=== PATIENT | female | born 1980 | race Caucasian/White ===

== ENCOUNTER 2019-02-20 10:22 | Observation (INO) | payer OTHER, SELFPAY ==
[2019-02-20] VITALS (8 sets, daily range): BP systolic 98–122; BP diastolic 48–71; PULSE 57–79; RESP 16–18; TEMP 36.6–37.4; O2SAT 98–100; BMI 21.7
--- NOTE | 2019-02-20 | PATH_ITS ---
[facility] Accession Number: [id number] . 01 Material submitted: . PART A: fallopian tube - RIGHT FALLOPIAN TUBE PART B: peritoneum - PERITONEAL BIOPSY . 01 Clinical history: . ECTOPIC B. POSSIBLE ENDOMETRIOSIS . 02 Diagnosis: A. Right Fallopian Tube, Right Salpingectomy: Fallopian tube with acute endosalpingitis, hematosalpinx, and intraluminal chorionic villi, consistent with ectopic . Endosalpingiosis focally present. No evidence of intraepithelial neoplasia or malignancy. . B. Peritoneal, Biopsy: Endosalpingiosis. No evidence of endometrial stroma, hemorrhage, or malignancy. MRV/02/26/2019 . 02 Electronically signed: . Lachelle Willoughby MD, Pathologist NPI- [id number] . 01 Gross description: . (A) Received in formalin, labeled right fallopian tube, is a nonfimbriated segment of fallopian tube (length-8.2 cm, diameter-up to 1.8 cm) with de la torre-purple, smooth shiny serosa. The lumen is dilated and contains red-brown solid soft material. No tissue is identified. Serially sectioned and entirely submitted in cassettes A1-A12. (B) Received in formalin, labeled peritoneal biopsy, possible endometriosis, is a fragment of de la torre-white tissue (0.5 x 0.3 x 0.2 cm). Submitted intact in cassette B1. ([id number]) /MRV . 02 Microscopic: . A) Immunohistochemical stains were performed to characterize glands of interest in block A2. The control stains show appropriate reactivity. Ki-67 stain shows no increased activity compared to the internal control. A p53 stain also shows patchy reactivity similar to the internal control. These findings are compatible with benign/reactive epithelium. . * This test was developed and its performance characteristics determined by [employer]. It has not been cleared or approved by the U.S. Food and Drug Administration. The FDA has determined that such clearance or approval is not necessary. This test is used for clinical purposes. It should not be regarded as investigational or for research. . B) Immunohistochemical stains were performed to characterize the cells of interest. All control stains showed appropriate reactivity. . RESULTS: PAX-8: Positive in the glands of interest. D2-40: Negative in the glands of interest. WT1: No tissue on slide following processing. . INTERPRETATION: The immunophenotype is compatible with endosalpingiosis. The absence of D2-40 mitigates against an interpretation of mesothelial inclusions. . * This test was developed and its performance characteristics determined by [employer]. It has not been cleared or approved by the U.S. Food and Drug Administration. The FDA has determined that such clearance or approval is not necessary. This test is used for clinical purposes. It should not be regarded as investigational or for research. . 02 Pathologist provided ICD-10: O00.90 . 02 CPT . 503543, 877546, G38424, P75653 Performed at: 01 [facility] [address] [place] [address], [place], [place] [id number] MD Samson Ahsley MD Phone: [phone] Performed at: 02 [facility] [address] [place] [id number] MD Lachelle Willoughby MD Phone: [phone]
--- NOTE | 2019-02-20 10:39 | DI.US.S_ITS ---
PROCEDURE: US OB <= 14 WEEKS FETUS INDICATIONS: RT OWER ABD PAIN, + PREG, PROBABLE ECTOPIC OUTSIDE/PRIOR DATING DATA: Last menstrual period (LMP): Not applicable. LMP-based estimated date of delivery (LEONARDO): Not applicable. First dating scan (date and location): Not applicable. Estimated date of delivery (LEONARDO) from first dating scan: Not applicable. TECHNIQUE: Real-time scanning was performed of the fetus and maternal pelvic organs, with image documentation. Endovaginal scanning was also performed to better visualize the fetus and maternal ovaries. COMPARISON: None. FINDINGS: Embryo: No intrauterine identified. Endometrium measures 12 mm in thickness. Measurement variability in dating: +/- 4 weeks by LMP, +/- 7 days by mean sac diameter (use before 6 weeks gestation if crown-rump length not able to be measured), +/- 5 days by crown-rump length (up to 8 weeks 6 days gestation), +/- 7 days by crown-rump length (up to 13 weeks 6 days gestation). Maternal organs: The right ovary measures 3.3 x 2.1 x 1 cm and is grossly unremarkable. Left ovary measures 2.9 x 1.1 x 2.0 cm and is unremarkable. Within the right adnexal region, there is a heterogeneous mass measuring 3.7 x 1.8 x 2.3 cm, compatible with patient's given clinical history of ectopic . Limited images through the kidneys demonstrate no hydronephrosis. IMPRESSION: No intrauterine . Right adnexal mass in keeping with reported ectopic . Findings were personally telephoned and discussed with Dr. Monterroso in the emergency department at 1256 hours on 02/20/19. Dictated by: Roman Conway M.D. on 02/20/2019 at 12:51 Approved by: Roman Conway M.D. on 02/20/2019 at 12:57
[2019-02-20 11:06] LABS: Add Manual Diff / Slide Review NO; Basophils Absolute Auto 0 /uL (0-100); Basophils Percent Auto 0.3 % (0-2); Eosinophils Absolute Auto 600 /uL (0-450); Eosinophils Percent Auto 6.6 % (2-4); Hematocrit 38.4 % (36-46); Hemoglobin 13.2 g/dL (12.0-16.0); Lymphocytes Absolute Auto 2700 /uL (1100-4500); Lymphocytes Percent Auto 29.2 % (25-40); Mean Corpuscular HGB Conc 34.4 % (30-36); Mean Corpuscular Hemoglobin 31.7 PG (26-34); Monocytes Absolute Auto 500 /uL (0-900); Monocytes Percent Auto 5.7 % (3-14); Neutrophils Absolute Auto 5400 /uL (1500-7000); Neutrophils Percent Auto 58.2 % (50-75); Platelet Count 206 X10^3/uL (150-400); Red Blood Cell Count 4.18 X10^6/uL (4.0-5.2); Red Cell Distribution Width 12.2 % (11.6-14.8); White Blood Cell Count 9.3 X10^3/uL (4.5-11.0)
[2019-02-20 11:18] LABS: Alanine Aminotransferase 11 IU/L (9-52); Albumin 4.6 g/dL (3.5-5.0); Albumin Globulin Ratio 1.5 (1.0-2.8); Alkaline Phosphatase 63 U/L (38-126); Aspartate Aminotransferase 23 IU/L (14-36); BUN Creatinine Ratio 18.3 (6-22); Bilirubin Total 0.8 mg/dL (0.2-1.3); Blood Urea Nitrogen 11 mg/dL (7-17); Calcium 9.4 mg/dL (8.4-10.2); Carbon Dioxide 26 mmol/L (22-32); Chloride 105 mmol/L (98-107); Estimated Glomerular Filt Rate > 60.0 mL/min (>60); Globulin 3.1 g/dL (1.7-4.1); Glucose 102 mg/dL (70-100); HEMOLYSIS < 15 (0-50); Potassium 3.9 mmol/L (3.4-5.1); Sodium 139 mmol/L (137-145); Total Protein 7.7 g/dL (6.3-8.2)
[2019-02-20 11:35] LABS: HCG Quantitative /Beta subunit 1533.3 mIU/mL
--- NOTE | 2019-02-20 11:39 | ED.FEMALEGU ---
HPI - Female Genitourinary General Chief complaint: OB/Uterine Contractions Stated complaint: etopic Time Seen by Provider: 02/20/19 10:40 Source: patient Mode of arrival: ambulatory Limitations: no limitations History of Present Illness HPI Narrative: Patient is a 38-year-old with history of 3 ectopics on the right being followed at fertility Clinic in [place] presenting with right lower quadrant pain. She said she was diagnosed with an ectopic 2 days ago at the fertility clinic. She was scheduled to have a right tubal removal however due to insurance reasons they were unable to do the procedure today. She is not wanting methotrexate, she states she has taken it in the past it takes her 2 years before trying again. She is wanting to have children. She is having some mild vaginal bleeding she has only minimal pain no nausea or vomiting. Related Data Home Medications Medication Instructions Recorded Confirmed albuterol sulfate 2 puff INHALATION Q4-6M PRN 02/20/19 02/20/19 levothyroxine 25 mcg PO DAILY 02/20/19 02/20/19 montelukast 10 mg PO DAILY 02/20/19 02/20/19 progesterone micronized 200 mg PO DAILY 02/20/19 02/20/19 valacyclovir 500 mg PO DAILY 02/20/19 02/20/19 Previous Rx's Medication Instructions Recorded oxycodone 10 mg PO Q4-6H PRN #30 tab 02/20/19 tramadol 50 mg PO TID PRN #30 tab 02/20/19 Allergies Allergy/AdvReac Type Severity Reaction Status Date / Time No Known Drug Allergies Allergy Verified 02/20/19 10:38 Review of Systems Review of Systems GENERAL: Denies chills, fatigue, malaise, fever, sweats, travel HEENT: Denies sinus pain, ear pain, sore throat, difficulty swallowing, neck pain RESPIRATORY: Denies dyspnea, cough, wheezing, hemoptysis, sputum. CARDIOVASCULAR: Denies chest pain, palpitations, orthopnea, edema GASTROINTESTINAL: Denies nausea, vomiting, abdominal pain, diarrhea, constipation, melena. : See HPI MUSCULOSKELETAL: Denies weakness, joint pain, or bony pain SKIN: No rash, no erythema, no pruritus NEUROLOGIC: Denies weakness, dizziness, headache, numbness, change in speech, confusion PSYCHIATRIC: No concerning psychosocial issues. 12 point review of systems is negative except for those stated above and HPI [facility] Medical History Ectopic (Acute) Asthma (Chronic) Hypothyroid (Chronic) Miscarriage (Inactive) Surgical History S/P breast augmentation (Chronic) Social History household members: spouse Smoking Status: Former smoker alcohol intake: current Social History household members: spouse Smoking Status: Former smoker alcohol intake: current Exam Initial Vital Signs Initial Vital Signs: Vital Signs Temperature 98.5 F 02/20/19 10:25 Pulse Rate 72 02/20/19 10:25 Respiratory Rate 18 02/20/19 10:25 Blood Pressure 116/70 02/20/19 10:25 Pulse Oximetry 99 02/20/19 10:25 GENERAL: Well-appearing, well-nourished and in no acute distress. HEENT: Head atraumatic,EOMI, pupils reactive CARDIOVASCULAR: Regular rate and rhythm without murmurs, rubs or gallops. RESPIRATORY: Breath sounds equal bilaterally, no wheezes rales or rhonchi. ABDOMEN: Soft, minimal right lower quadrant tenderness : No CVA tenderness EXTREMITIES: Normal range of motion, no clubbing or edema. Neurovascularly intact NEUROLOGICAL: Alert and oriented x4.Normal gait and speech. Cranial nerves II through XII grossly intact. SKIN: Warm, dry, no laceration, no petechiae, no rashes or lesions. Course Orders Ordered: ED Orders 02/20/19 10:39 US OB <= 14 weeks fetus Stat 02/20/19 10:55 ABO RH Type Stat Complete Blood Count AUTO DIFF Stat Comprehensive Metabolic Panel Stat HCG Quantitative Stat Lactated Ringer's (Lactated Ringers) 1,000 mls @ 100 mls/hr IV CONT LISA Last Admin: 02/20/19 14:35 Dose: 100 mls/hr Vital Signs - 8 hr 02/20/19 10:25 02/20/19 13:48 02/20/19 14:13 Temperature 98.5 F Pulse Rate 72 75 72 Respiratory Rate 18 17 16 Blood Pressure 116/70 111/63 Blood Pressure [Left Arm] 109/71 Pulse Oximetry 99 98 100 02/20/19 14:25 02/20/19 16:15 Temperature 97.8 F 99.4 F Pulse Rate 57 L 64 Respiratory Rate 16 18 Blood Pressure 107/55 L 99/61 Blood Pressure [Left Arm] Pulse Oximetry 100 98 MDM - Female Genitourinary Lab Data Attestation: I reviewed the patient's lab results. Result diagrams: 02/20/19 10:55 02/20/19 10:55 Lab Results 02/20/19 02/20/19 02/20/19 Range/Units 10:55 10:55 10:55 WBC 9.3 (4.5-11.0) X10^3/uL RBC 4.18 (4.0-5.2) X10^6/uL Hgb 13.2 (12.0-16.0) g/dL Hct 38.4 (36-46) % MCV 92.0 (80-100) fL MCH 31.7 (26-34) PG MCHC 34.4 (30-36) % RDW 12.2 (11.6-14.8) % Plt Count 206 (150-400) X10^3/uL Neut % (Auto) 58.2 (50-75) % Lymph % (Auto) 29.2 (25-40) % [place] % (Auto) 5.7 (3-14) % Eos % (Auto) 6.6 H (2-4) % Baso % (Auto) 0.3 (0-2) % Neut # (Auto) 5400 (1880-2617) /uL Lymph # (Auto) 2700 (6570-9402) /uL [place] # (Auto) 500 (0-900) /uL Eos # (Auto) 600 H (0-450) /uL Baso # (Auto) 0 (0-100) /uL Sodium 139 (137-145) mmol/L Potassium 3.9 (3.4-5.1) mmol/L Chloride 105 (98-107) mmol/L Carbon Dioxide 26 (22-32) mmol/L BUN 11 (7-17) mg/dL Creatinine 0.60 (0.52-1.04) mg/dL Estimated GFR > 60.0 (>60) mL/min BUN/Creatinine Ratio 18.3 (6-22) Glucose 102 H (70-100) mg/dL Calcium 9.4 (8.4-10.2) mg/dL Total Bilirubin 0.8 (0.2-1.3) mg/dL AST 23 (14-36) IU/L ALT 11 (9-52) IU/L Alkaline Phosphatase 63 (38-126) U/L Total Protein 7.7 (6.3-8.2) g/dL Albumin 4.6 (3.5-5.0) g/dL Globulin 3.1 (1.7-4.1) g/dL Albumin/Globulin Ratio 1.5 (1.0-2.8) HCG, Quant 1533.3 mIU/mL Blood Type O Positive Point of Care Testing Test Results Positive Urine Dip Bedside Urine Glucose Negative Bedside Urine Bilirubin - Negative Bedside Urine Ketone - Negative Urine Specific [place] 1.015 Bedside Urine Occult Blood - Negative Bedside Urine pH 6 Bedside Urine Protein +/- 15 Bedside Urine Urobilinogen - Negative Bedside Urine Nitrite - Negative Bedside Urine Leukocytes - Negative Esterase Imaging Data US - abdomen: Radiologist's impression: PROCEDURE: US OB <= 14 WEEKS FETUS INDICATIONS: RT OWER ABD PAIN, + PREG, PROBABLE ECTOPIC OUTSIDE/PRIOR DATING DATA: Last menstrual period (LMP): Not applicable. LMP-based estimated date of delivery (LEONARDO): Not applicable. First dating scan (date and location): Not applicable. Estimated date of delivery (LEONARDO) from first dating scan: Not applicable. TECHNIQUE: Real-time scanning was performed of the fetus and maternal pelvic organs, with image documentation. Endovaginal scanning was also performed to better visualize the fetus and maternal ovaries. COMPARISON: None. FINDINGS: Embryo: No intrauterine identified. Endometrium measures 12 mm in thickness. Measurement variability in dating: +/- 4 weeks by LMP, +/- 7 days by mean sac diameter (use before 6 weeks gestation if crown-rump length not able to be measured), +/- 5 days by crown-rump length (up to 8 weeks 6 days gestation), +/- 7 days by crown-rump length (up to 13 weeks 6 days gestation). Maternal organs: The right ovary measures 3.3 x 2.1 x 1 cm and is grossly unremarkable. Left ovary measures 2.9 x 1.1 x 2.0 cm and is unremarkable. Within the right adnexal region, there is a heterogeneous mass measuring 3.7 x 1.8 x 2.3 cm, compatible with patient's given clinical history of ectopic . Limited images through the kidneys demonstrate no hydronephrosis. IMPRESSION: No intrauterine . Right adnexal mass in keeping with reported ectopic . Findings were personally telephoned and discussed with Dr. Monterroso in the emergency department at 1256 hours on 02/20/19. Dictated by: Roman Conway M.D. on 02/20/2019 at 12:5 MDM Narrative Medical decision making narrative: Dr. Julian in the ED to see and evaluate patient. Will go to OR, 7:00 p.m. [facility]. Discharge Plan Departure Patient Disposition: Admitted as Observation Clinical Impression: Ectopic Qualifiers: Location of ectopic : tubal Intrauterine status: without intrauterine Laterality: right Qualified Code(s): O00.101 - Right tubal without intrauterine Discharge Date/Time: 02/20/19 14:16 Interventions: ED Discharge Assessment Last Done: 02/20/19 14:13 Admit Date/Time: 02/20/19 14:14 Admit Provider: Brittany Julian
--- NOTE | 2019-02-20 14:22 | PC.NURSE ---
ADMISSION NOTE - pt arrived via wc to room, ambulatory, states mild cramping discomfort, declines medication, provided peripads and cleaning cloths provided, oriented to room.
[2019-02-20] MEDS: LACTATED RINGERS 1,000 ML 100 ML IV (14:35)
--- NOTE | 2019-02-20 14:36 | P.HPOB_ITS ---
History of Present Illness Reason for admission: ectopic (Right tube) Narrative: Lizbeth Saleh is a 38 year old female 5 para 0 with 2 early miscarriages and 2 prior right sided ectopic pregnancies treated with methotrexate. Patient currently has a presumed right ectopic tubal with an HCG level of 1500. Patient is requesting salpingectomy rather than repeat methotrexate. [facility] Medical History (Updated 02/20/19 @ 14:39 by Brittany Julian MD) Ectopic (Acute) Asthma (Chronic) Hypothyroid (Chronic) Miscarriage (Inactive) Surgical History (Updated 02/20/19 @ 14:39 by Brittany Julian MD) S/P breast augmentation (Chronic) Social History Smoking Status: Never smoker Social History Smoking Status: Never smoker Meds Home Medications Medication Instructions Recorded Confirmed Type albuterol sulfate 2 puff INHALATION Q4-6M PRN 02/20/19 02/20/19 History levothyroxine 25 mcg PO DAILY 02/20/19 02/20/19 History montelukast 10 mg PO DAILY 02/20/19 02/20/19 History oxycodone 10 mg PO Q4-6H PRN #30 tab 02/20/19 02/20/19 Rx progesterone micronized 200 mg PO DAILY 02/20/19 02/20/19 History valacyclovir 500 mg PO DAILY 02/20/19 02/20/19 History Allergies Allergy/AdvReac Type Severity Reaction Status Date / Time No Known Drug Allergies Allergy Verified 02/20/19 10:38 Review of Systems Review of Systems Patient with mild right lower quadrant pain and cramping. No significant bleeding. All systems reviewed & are unremarkable except as noted in HPI and below Exam Vital Signs (past 8 hours): - 02/20/19 10:25 02/20/19 13:48 02/20/19 14:13 Temperature 98.5 F Pulse Rate 72 75 72 Respiratory Rate 18 17 16 Blood Pressure 116/70 111/63 Blood Pressure [Left Arm] 109/71 Pulse Oximetry 99 98 100 Oxygen Delivery Method Room Air Narrative Exam Narrative: HEENT exam within normal limits. Lungs are clear to auscultat ion and percussion. No thyromegaly. Heart is regular rate and rhythm no S3-S4 or murmurs. Abdomen is soft with no rebound but mild tenderness in the lower abdomen. Pelvic exam was not performed. Extremities with no edema and nontender. Objective Imaging US - abdomen: My impression: Patient's infertility physician documented the right ectopic . He was unable to perform a scheduled outpatient laparoscopic removal of ectopic so advised her to present to the emergency room Labs Result Diagrams: 02/20/19 10:55 02/20/19 10:55 Labs: Laboratory Results - last 24 hr 02/20/19 02/20/19 02/20/19 10:55 10:55 10:55 WBC 9.3 RBC 4.18 Hgb 13.2 Hct 38.4 MCV 92.0 MCH 31.7 MCHC 34.4 RDW 12.2 Plt Count 206 Neut % (Auto) 58.2 Lymph % (Auto) 29.2 [place] % (Auto) 5.7 Eos % (Auto) 6.6 H Baso % (Auto) 0.3 Neut # (Auto) 5400 Lymph # (Auto) 2700 [place] # (Auto) 500 Eos # (Auto) 600 H Baso # (Auto) 0 Sodium 139 Potassium 3.9 Chloride 105 Carbon Dioxide 26 BUN 11 Creatinine 0.60 Estimated GFR > 60.0 BUN/Creatinine Ratio 18.3 Glucose 102 H Calcium 9.4 Total Bilirubin 0.8 AST 23 ALT 11 Alkaline Phosphatase 63 Total Protein 7.7 Albumin 4.6 Globulin 3.1 Albumin/Globulin Ratio 1.5 HCG, Quant 1533.3 Blood Type O Positive Assessment & Plan (1) Ectopic : Qualifiers: Intrauterine status: without intrauterine Laterality: right Location of ectopic : tubal Qualified Code(s): O00.101 - Right tubal without intrauterine Current visit: Yes Status: Acute Assessment & Plan narrative: Patient with recurrent right ectopic requesting laparoscopic removal of her right tube. Consent form was reviewed with the patient. Risk of damage to bowel, bladder, ureter discussed. Possibility of opening the abdomen discussed. Small risk of infection discussed. Patient requests dye being placed through the uterus to see if the left fallopian tube is patent. Consent form was signed and questions answered. Time Spent With Patient Time with patient: 15-24 minutes
--- NOTE | 2019-02-20 17:20 | PC.NURSE ---
Addendum entered by Genie Aldridge R.N. 02/20/19 22:41: Pt has taken oral fluids and crackers without nausea. Reports percocet is effective to manage pain. Pt has voided. Up ad tae in room. IV dc'd intact. Pt and spouse express desire to go home. Discharge instructions provided in written and verbal format. Script provided. Pt reports has pain medications at home. Follow up to be scheduled by pt in the a.m. Pt left hospital ambulatory with spouse escorted by RANGE EXAMINER in stable condition. All personal effects in pt's possession. Addendum entered by Genie Aldridge R.N. 02/20/19 21:19: Pt to room 215 from PACU wide awake and conversant. Admits to incisional pain 3/10, but declines any analgesia. Denies nausea. Bowel tones present. Peripad in place. Three large bandaids intact to abdomen with scant drainage at umbilicus. Dr. Julian in to see pt and pt's spouse who is present in room. Pt taking oral fluids at this time. Expresses desire to be discharged to home this evening. Addendum entered by Genie Aldridge R.N. 02/20/19 19:12: To O.R. @ 4840. Original Note: Checked on patient at this hour. Pt in bed with spouse. Both parties with eyes closed. Pt on left side resting quietly without signs of distress or discomfort. Will allow for uninterrupted rest/time with spouse.
--- NOTE | 2019-02-20 19:38 | SUR.OPER ---
Lithotomy on padded OR bed, head on pillow, arms secured on padded arm boards at <90 degrees abduction. Legs secured in padded yellow fins stirrups.
[2019-02-20] MEDS: BUPIVACAINE 0.5% W/ EPI (PF) VIAL 30 ML INJ (19:57)
[2019-02-20] MEDS: METHYLENE BLUE 50 MG/10 ML VIAL INJ (20:00)
--- NOTE | 2019-02-20 20:32 | P.OP_ITS ---
Operative Date/Time/Diagnoses Date of procedure: 02/20/19 Time of procedure: 20:25 Post-op diagnosis: same Procedure & Clinicians Procedure: Laparoscopy with right salpingectomy, lysis of adhesions, chromopertubation, biopsy of peritoneum Same procedure as scheduled: Yes Indications: Third right fallopian tube ectopic Surgeon: Brittany Julian Click Yes if Unassisted: Yes Anesthesia Type: General Operative Notes Findings: Right ectopic . Extensive adhesions on the left adnexa. Unable to get dye to flow from the uterus through the left fallopian tube. Possible atypical endometriosis of the peritoneum on the bladder flap. Adhesions between the liver and the anterior abdominal wall. Normal liver otherwise normal gallbladder dome, normal appendix and bowel surface. No internal hernias. Closure Type: primary Specimen(s): other (Right fallopian tube and peritoneal biopsy) Estimated Blood Loss (mL): 5 Blood products transfused: none Procedure in detail: Patient was brought to the operating room where she underwent general anesthesia. She was placed in low yellowfin stirrups and prepped and draped in usual sterile fashion. [Antibiotics were in prior to beginning of the case]. Pulsatile stockings were in place and functional. Warming was with blankets. A single-tooth tenaculum was placed on the anterior lip of the cervix and the cervix dilated to #6 Hegar dilator. The Terri uterine manipulator was placed and balloon inflated with 3 mL of air. The area of the incisions were injected with half percent Marcaine with epinephrine. An incision was made in the umbilicus with a scalpel and the incision was carried down to the fascial layer which was incised transversely and held with 0 Vicryl suture. The peritoneum was entered bluntly. The Morrow cannula was placed in the abdomen and the abdomen insufflated with CO2. There did not appear to be damage with placement of the trocar. 2 other 5 mm trochars were placed in the right and left lower quadrant under direct visualization after incising the skin. There did not appear to be any damage with placement of the trocars. The right fallopian tube was grasped and removed by cauterizing and cutting the mesosalpinx and across the fallopian tube at the junction with the uterus with the PK generator. The tube was placed in an Endo-Catch bag and brought up out of the abdomen through the Sylvia cannula. Next adhesions were lysed. Attempt to do chromopertubation of a total of 40 cc was unsuccessful of seeing any dye comes through the fallopian tube but also no distention of the tube. Adequate hemostasis was noted. A small amount of blood in the posterior cul-de-sac was r emoved. The CO2 was allowed to escape from the abdomen. The trochars were removed. The fascial layer of the umbilical incision was closed with the prior placed 0 Vicryl suture. Skin was closed with 4-0 monocryl. The patient went to recovery room in good condition. Complications: none Condition: stable Disposition: same day surgery Plan for aftercare: Home when awake and stable
[2019-02-20] MEDS: OXYCODONE/ACETAMINOPHEN 5/325 TABLET 1 TAB PO (21:31)
--- NOTE | 2019-03-29 11:57 | PC.NURSE ---
Late entry: Lactated Ringers stopped 02/20 1699
== END 2019-02-20 22:41 | disposition home or self-care (01) ==
LOC: ED 13:46 → AC 14:15
PROVIDERS: Admitting Provider Specialist; Emergency Provider Emergency Medicine; Visit Provider Specialist
PROC: (CPT 59151; principal; 2019-02-20 19:15)
DX: O00.101 Right tubal pregnancy without intrauterine pregnancy (principal); R10.31 Right lower quadrant pain; J45.909 Unspecified asthma, uncomplicated; E03.9 Hypothyroidism, unspecified
CPT/HCPCS: 59151; 36591; 76801; 76817; 80053; 81003; 81025; 84702; 85025; 86900; 86901; 99282; 99284; G0378; J1100; J1885; J2250; J2405; J2704; J3010; Q9968